=== PATIENT | female | born 1950 ===

== ENCOUNTER → 2024-08-31 | Outpatient (CLI) | payer OTHER | END | disposition home or self-care (01) | LOC: LAB SHORT 16:00 → LAB 16:00 | DX: R30.0 Dysuria (principal) | CPT/HCPCS: 87077; 87086; 87186 ==

== ENCOUNTER 2025-05-24 11:07 | Inpatient (IN) | payer MEDICARE ==
[~2025-05-24] VITALS: Ht 167.6 cm; Wt 64.4 kg
[2025-05-24] MEDS ORDERED: NS 1,000 ML IV SCH ×2 (11:35)
[2025-05-24 12:17] LABS: BASOPHILS ABSOLUTE AUTO 0.08 K/mm3 (0.00-0.23); BASOPHILS PERCENT AUTO 0 % (0-2); EOSINOPHILS ABSOLUTE AUTO 0.06 K/mm3 (0.00-0.68); EOSINOPHILS PERCENT AUTO 0 % (0-6); Hematocrit 38.5 % (33.0-51.0); Hemoglobin 13.1 g/dL (11.5-16.0); IMMATURE GRAN ABSOLUTE AUTO 0.22 K/mm3 (0.00-0.10); IMMATURE GRAN PERCENT AUTO 1 % (0-1); LYMPHOCYTES ABSOLUTE AUTO 0.68 K/mm3 (0.84-5.20); LYMPHOCYTES PERCENT AUTO 3 % (21-46); MONOCYTES ABSOLUTE AUTO 0.78 K/mm3 (0.16-1.47); MONOCYTES PERCENT AUTO 4 % (4-13); Mean Corpuscular HGB Conc 34.0 g/dL (31.5-36.5); Mean Corpuscular Volume 79 fL (80-100); NEUTROPHILS ABSOLUTE AUTO 18.53 K/mm3 (1.96-9.15); NEUTROPHILS PERCENT AUTO 91 % (41-73); NRBC ABSOLUTE 0.00 K/mm3 (0.00-0.02); NRBC Auto 0.0 /100 WBC (0.0-0.2); Platelet Count 418 K/mm3 (150-400); RDW Coefficient Variation 13.1 % (11.7-14.2); RDW Standard Deviation 37.4 fL (35.1-46.3)
[2025-05-24 13:30] LABS: Alanine Aminotransfer (ALT/SGP 67.0 U/L (12-78); Albumin, Blood 1.8 g/dL (3.4-5.0); Albumin/Globulin Ratio 0.3 (0.8-1.8); Anion Gap 14.0 mmol/L (3-11); Aspartate Aminotrans (AST/SGOT 81.0 U/L (12-37); Bilirubin, Total 0.6 mg/dL (0.1-1.0); Blood Urea Nitrogen 70.0 mg/dL (8-24); CO2, Blood 21.0 mmol/L (21-32); Calcium, Blood 8.9 mg/dL (8.5-10.1); Chloride, Blood 87.0 mmol/L (98-108); Creatinine, Blood 2.3 mg/dL (0.40-1.00); Globulin, Blood 6.2 g/dL (2.2-4.0); Glucose, Blood 138.0 mg/dL (70-99); Potassium, Blood 5.1 mmol/L (3.5-5.5); Sodium, Blood 117.0 mmol/L (136-145); Total Protein, Blood 8.0 g/dL (6.4-8.2)
[2025-05-24 14:50] LABS: Source, Urine Straight Cath
[2025-05-24 15:01] LABS: Bilirubin, Urine Neg (Neg); Glucose Qualitative, Urine Neg (Neg); Ketones, Urine Neg (Neg); Leukocyte Esterase, Urine 1+ (Neg); Protein, Urine 2+ (Neg); Specific Gravity, Urine 1.030 (1.003-1.022); Urobilinogen, Urine NORM (Normal)
[2025-05-24 15:17] LABS: Color, Urine Yellow (P-Yellow)
[2025-05-24] MEDS ORDERED: CefTRIAXone Sodium 1,000 MG in NS 50 ML IV ONE (16:00)
[2025-05-24] MEDS ORDERED: Ondansetron HCl 2 MG / ML 2ML Vial IV PRN (18:20)
[2025-05-24 20:15] LABS: Source, Urine Foley catheter
[2025-05-24 20:21] LABS: Bilirubin, Urine Neg (Neg); Glucose Qualitative, Urine Neg (Neg); Ketones, Urine Neg (Neg); Leukocyte Esterase, Urine 3+ (Neg); Protein, Urine 2+ (Neg); Specific Gravity, Urine 1.025 (1.003-1.022); Urobilinogen, Urine NORM (Normal)
[2025-05-24 20:23] LABS: Color, Urine Yellow (P-Yellow)
[2025-05-24 20:30] LABS: Red Blood Cells, Urine TNTC /hpf (0-2); White Blood Cells, Urine TNTC /hpf (0-5)
[2025-05-24] MEDS ORDERED: Lactobacil 2-S.Thermo-Bifido 1 1 Cap PO SCH (21:00)
[2025-05-24] MEDS ORDERED: Heparin Sodium,Porcine 5,000 UNIT/0.5 ML SDV SC SCH (21:00)
[2025-05-24] MEDS ORDERED: Morphine Sulfate 4 MG/1 ML Injection IV PRN ×2 (21:10→22:20)
[2025-05-24 21:43] LABS: Magnesium, Blood 1.9 mg/dL (1.6-2.4)
[2025-05-24 21:44] LABS: Alanine Aminotransfer (ALT/SGP 66.0 U/L (12-78); Albumin, Blood 1.5 g/dL (3.4-5.0); Albumin/Globulin Ratio 0.3 (0.8-1.8); Anion Gap 14.0 mmol/L (3-11); Aspartate Aminotrans (AST/SGOT 89.0 U/L (12-37); Bilirubin, Total 0.4 mg/dL (0.1-1.0); Blood Urea Nitrogen 66.0 mg/dL (8-24); CO2, Blood 19.0 mmol/L (21-32); Calcium, Blood 8.0 mg/dL (8.5-10.1); Chloride, Blood 98.0 mmol/L (98-108); Creatinine, Blood 1.57 mg/dL (0.40-1.00); Globulin, Blood 5.3 g/dL (2.2-4.0); Glucose, Blood 89.0 mg/dL (70-99); Potassium, Blood 4.3 mmol/L (3.5-5.5); Sodium, Blood 127.0 mmol/L (136-145); Total Protein, Blood 6.8 g/dL (6.4-8.2)
[2025-05-24] MEDS ORDERED: D5W-1/2NS 1,000 ML IV SCH ×2 (22:15→22:55)
[2025-05-24 22:57] LABS: Campylobacter Sp Not Detected (NOT DETECT); E. Coli O157 Not Detected (NOT DETECT); Enteroaggregative E. coli-EAEC Not Detected (NOT DETECT); Enteropathogenic E. coli-EPEC Not Detected (NOT DETECT); Enterotoxigenic E. coli-ETEC Not Detected (NOT DETECT); Salmonella Sp Not Detected (NOT DETECT); Shiga Toxin-prod E. coli-STEC Not Detected (NOT DETECT); Shigella/Enteroin E. coli-EIEC Not Detected (NOT DETECT); Vibrio Sp Not Detected (NOT DETECT)
[2025-05-24] MEDS ORDERED: Piperacillin/Tazobactam Sod 4.5 GM in NS 100 ML IV SCH (23:30)
[2025-05-25] VITALS (67 sets, daily range): BP systolic 73–114; BP diastolic 43–67
[2025-05-25] MEDS ORDERED: Insulin Human Lispro 100 Units/ML 3ML Syringe SC SCH
[2025-05-25 01:33] LABS: Anion Gap 13.0 mmol/L (3-11); Blood Urea Nitrogen 60.0 mg/dL (8-24); CO2, Blood 20.0 mmol/L (21-32); Calcium, Blood 8.0 mg/dL (8.5-10.1); Chloride, Blood 99.0 mmol/L (98-108); Creatinine, Blood 1.29 mg/dL (0.40-1.00); Glucose, Blood 140.0 mg/dL (70-99); Potassium, Blood 4.0 mmol/L (3.5-5.5); Sodium, Blood 128.0 mmol/L (136-145)
[2025-05-25 05:27] LABS: BASOPHILS ABSOLUTE AUTO 0.06 K/mm3 (0.00-0.23); BASOPHILS PERCENT AUTO 0 % (0-2); EOSINOPHILS ABSOLUTE AUTO 0.06 K/mm3 (0.00-0.68); EOSINOPHILS PERCENT AUTO 0 % (0-6); Hematocrit 36.3 % (33.0-51.0); Hemoglobin 11.7 g/dL (11.5-16.0); IMMATURE GRAN ABSOLUTE AUTO 0.18 K/mm3 (0.00-0.10); IMMATURE GRAN PERCENT AUTO 1 % (0-1); LYMPHOCYTES ABSOLUTE AUTO 0.66 K/mm3 (0.84-5.20); LYMPHOCYTES PERCENT AUTO 4 % (21-46); MONOCYTES ABSOLUTE AUTO 0.98 K/mm3 (0.16-1.47); MONOCYTES PERCENT AUTO 5 % (4-13); Mean Corpuscular HGB Conc 32.2 g/dL (31.5-36.5); Mean Corpuscular Volume 83 fL (80-100); NEUTROPHILS ABSOLUTE AUTO 16.99 K/mm3 (1.96-9.15); NEUTROPHILS PERCENT AUTO 90 % (41-73); NRBC ABSOLUTE 0.00 K/mm3 (0.00-0.02); NRBC Auto 0.0 /100 WBC (0.0-0.2); Platelet Count 343 K/mm3 (150-400); RDW Coefficient Variation 13.2 % (11.7-14.2); RDW Standard Deviation 40.2 fL (35.1-46.3)
[2025-05-25 05:54] LABS: Alanine Aminotransfer (ALT/SGP 69.0 U/L (12-78); Albumin, Blood 1.5 g/dL (3.4-5.0); Albumin/Globulin Ratio 0.3 (0.8-1.8); Anion Gap 12.0 mmol/L (3-11); Aspartate Aminotrans (AST/SGOT 94.0 U/L (12-37); Bilirubin, Total 0.4 mg/dL (0.1-1.0); Blood Urea Nitrogen 57.0 mg/dL (8-24); CO2, Blood 22.0 mmol/L (21-32); Calcium, Blood 8.0 mg/dL (8.5-10.1); Chloride, Blood 97.0 mmol/L (98-108); Creatinine, Blood 1.25 mg/dL (0.40-1.00); Globulin, Blood 4.8 g/dL (2.2-4.0); Glucose, Blood 183.0 mg/dL (70-99); Magnesium, Blood 2.0 mg/dL (1.6-2.4); Potassium, Blood 4.0 mmol/L (3.5-5.5); Sodium, Blood 127.0 mmol/L (136-145); Total Protein, Blood 6.3 g/dL (6.4-8.2)
[2025-05-25] MEDS ORDERED: D5W-1/2NS 1,000 ML IV SCH (08:00)
[2025-05-25] MEDS ORDERED: Enoxaparin 40 MG/0.4 ML SYR SC SCH (09:00)
[2025-05-25] MEDS ORDERED: Polyethylene Glycol 3350 17 gm PO SCH (09:00)
[2025-05-25 10:46] LABS: Anion Gap 10.0 mmol/L (3-11); Blood Urea Nitrogen 43.0 mg/dL (8-24); CO2, Blood 23.0 mmol/L (21-32); Calcium, Blood 7.8 mg/dL (8.5-10.1); Chloride, Blood 97.0 mmol/L (98-108); Creatinine, Blood 1.15 mg/dL (0.40-1.00); Glucose, Blood 236.0 mg/dL (70-99); Potassium, Blood 3.8 mmol/L (3.5-5.5); Sodium, Blood 126.0 mmol/L (136-145); Thyroid Stimulating Hormone 0.467 uIU/mL (0.360-4.800); Uric Acid, Blood 6.6 mg/dL (2.6-6.0)
[2025-05-25] MEDS ORDERED: LISI10 PO (13:15)
[2025-05-25] MEDS ORDERED: GLUCOPHAGE1000 M1 (13:16)
[2025-05-25] MEDS ORDERED: Prozac40 MG PO (13:16)
[2025-05-25] MEDS ORDERED: [UNRECOGNIZED DRUG - OTHER] PO (13:17)
[2025-05-25] MEDS ORDERED: JARDIANCE25 MG PO (13:18)
[2025-05-25] MEDS ORDERED: CefTRIAXone Sodium 1,000 MG in NS 100 ML IV SCH (18:00)
--- NOTE | 2025-05-25 18:15 | NUR ---
SHIFT SUMMARY NEURO: ALERT AND ORIENTED X 3-4. DID NOT UTILIZE CALL LIGHT TODAY. FOLLOW COMMANDS. DROWSY BUT AROUSABLE. CARDIAC: SINUS TACHYCARDIA HR 110S. HYPOTENSIVE THIS AM. DR REED NOTIFIED. NEW ORDERS RECIEVED FOR MIDODRINE. INSTUCTED MAP >60 OK UNTIL MIDODRINE IN EFFECT. SBP CURRENTLY 110S, DBP 50S. PULM: LUNGS CLEAR AND DIM IN BILATERAL POSTERIOR BASES. +SNORING WHILE SLEEPING BUT NO NOTED APNEA OR DESATS. SPO2 >92% ON RA. DENIES ANY COUGH. GI: HYPERTONIC BOWEL TONES, TENDER ABDOMEN TO PALPATION. DENIES ANY NAUSEA BUT STATES THAT HER STOMACH DOESNT FEEL RIGHT. +CONSTIPATION, BOWEL REGIMEN STARTED THIS AM WITH PO MEDS. : URINARY RETENTION, SANCHEZ IN PLACE. IRRIGATED Q 2-4HR TODAY. URINE IS CREAMY WHITE COLOR AND THICK CAUSING TUBE TO BECOME OBSTRUCTED. DRAINING APPROPRIATELY AFTER FLUSHED. BLADDER SCAN DONE AT 1200 840ML. IRRIGATED CATHETHER - 800ML OUT. CALLED TO NOTIFY DR REED. SKIN: J[place]-AREA, LABIA, GROIN FOLDS AND GLUTEAL CLEFT AREAS APPEAR DENUDED AND BRIGHT RED. CURRENLTY APPLYING BARRIER CREAM, AREAS ARE BLANCHABLE. CALLED TO DISCUSS TX WITH DR REED. PT NICARDIPINE STOPPED FOR APPROX 45MIN TODAY PT RESTARTED AT 2.5MG/HR. SBP 150-160S. DENIES ANY CHEST PAIN, NAUSEA OR DIZZINESS TODAY. PT IN CONTACT WITH DAUGHTERS AND THROUGH OUT THE DAY. SHE IS THE SOLE CAREGIVER TO HER , FAMILY IS AT THEIR HOME ASSISTING WITH HIS CARE.
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
[2025-05-25] MEDS ORDERED: Arginine/Glutamine/Calcium Hmb 1 Packet PO SCH (21:00)
[2025-05-26] VITALS (52 sets, daily range): BP systolic 75–111; BP diastolic 46–85
[2025-05-26 03:56] LABS: BASOPHILS ABSOLUTE AUTO 0.02 K/mm3 (0.00-0.23); BASOPHILS PERCENT AUTO 0 % (0-2); EOSINOPHILS ABSOLUTE AUTO 0.03 K/mm3 (0.00-0.68); EOSINOPHILS PERCENT AUTO 0 % (0-6); Hematocrit 32.1 % (33.0-51.0); Hemoglobin 10.8 g/dL (11.5-16.0); IMMATURE GRAN ABSOLUTE AUTO 0.11 K/mm3 (0.00-0.10); IMMATURE GRAN PERCENT AUTO 1 % (0-1); LYMPHOCYTES ABSOLUTE AUTO 0.79 K/mm3 (0.84-5.20); LYMPHOCYTES PERCENT AUTO 5 % (21-46); MONOCYTES ABSOLUTE AUTO 0.61 K/mm3 (0.16-1.47); MONOCYTES PERCENT AUTO 4 % (4-13); Mean Corpuscular HGB Conc 33.6 g/dL (31.5-36.5); Mean Corpuscular Volume 81 fL (80-100); NEUTROPHILS ABSOLUTE AUTO 13.18 K/mm3 (1.96-9.15); NEUTROPHILS PERCENT AUTO 90 % (41-73); NRBC ABSOLUTE 0.00 K/mm3 (0.00-0.02); NRBC Auto 0.0 /100 WBC (0.0-0.2); Platelet Count 364 K/mm3 (150-400); RDW Coefficient Variation 13.2 % (11.7-14.2); RDW Standard Deviation 38.5 fL (35.1-46.3)
[2025-05-26 04:15] LABS: Alanine Aminotransfer (ALT/SGP 114.0 U/L (12-78); Albumin, Blood 1.3 g/dL (3.4-5.0); Albumin/Globulin Ratio 0.3 (0.8-1.8); Anion Gap 7.0 mmol/L (3-11); Aspartate Aminotrans (AST/SGOT 171.0 U/L (12-37); Bilirubin, Total 0.5 mg/dL (0.1-1.0); Blood Urea Nitrogen 32.0 mg/dL (8-24); CO2, Blood 26.0 mmol/L (21-32); Calcium, Blood 7.7 mg/dL (8.5-10.1); Chloride, Blood 99.0 mmol/L (98-108); Creatinine, Blood 0.92 mg/dL (0.40-1.00); Globulin, Blood 4.5 g/dL (2.2-4.0); Glucose, Blood 115.0 mg/dL (70-99); Potassium, Blood 3.8 mmol/L (3.5-5.5); Sodium, Blood 128.0 mmol/L (136-145); Total Protein, Blood 5.8 g/dL (6.4-8.2)
--- NOTE | 2025-05-26 06:38 | NUR ---
END OF SHIFT SUMMARY No signficant events over night. Patient vocalize no compliants at this time. Hsu catheter flushed q2hr to maintain urine flow , Pt tolerated PO medications , no BM overnight . Pressure soft , but stable . Systolic >90 MAP > 60
--- NOTE | 2025-05-26 10:51 | NUR ---
Spiritual Care Visit. Pt. is resting in her bed. Daughter is at bedside and welcomes my visit. Pt. is swedish speaking, and daughter is bilingual. Daughter verbalizes that the Pt. is a very faithful practicing episcopalian, but welcomes spiritual care. Pt. becomes responsive to my presence and welcomed prayer. Prayed for the Pt. Pt. smiled, and daughter verbalized gratitude for the spiritual care visit. Will remain available to the Pt. and family.
--- NOTE | 2025-05-26 19:35 | NUR ---
SHIFT SUMMARY: NEURO: PATIENT REPORTED FEELING MUCH BETTER TODAY. PATIENT ALERT AND ORIENTED X4. MOVEMENT IN ALL 4 EXTREMITIES. PATIENT IS WEAKER ON THE LEFT SIDE COMPARED TO THE RIGHT. NO FACIAL DROOP OR SLURRING OF WORDS. PATIENT ABLE TO EAT INDEPENDENTLY. PATIENT MEDICATED TWICE FOR LEG PAIN. PATIENT UP TO THE CHAIR THIS EVENING. PATIENT'S DAUGHTER REPORTS THAT THE REDNESS IN THE J[place]SEY-AREA WAS PRESENT UPON ADMISSION TO THE ER. ORDER OBTAINED FOR NYSTATIN CREAM. CREAM WAS STARTED THIS AFTERNOON. CARDIAC: TO MAINTAIN MAPS >65, PATIENT STARTED ON LEVOPHED. BY THE END OF THE SHIFT, PATIENT AT 4 MCG/MIN. PATIENT STARTED THE SHIFT WITH HR IN THE 100S. IN THE AFTERNOON, THE HEART RATE CAME DOWN AND STAYED IN THE 70S-80S. RESPIRATORY: PATIENT REMAINED STABLE ON ROOM AIR. PATIENT DENIED SHORTNESS OF BREATH OR DIFFICULTY BREATHING. SPO2 >94%. GI/: SANCHEZ IN PLACE AND DRAINING WITH SEDIMENT AT TIMES. SANCHEZ DID REQUIRE SMALL AMOUNTS OF IRRIGATION TWICE TODAY. URINE IMPROVED IN COLOR AND WAS A LIGHT YELLOW BY THE AFTERNOON. NO BOWEL MOVEMENT TODAY. PATIENT REPORTS THE FOOD DOES NOT TASTE GOOD AND SHE IS EATING MUCH SHE CAN ANYWAY. BROUGHT IN CHICKEN BROTH PER REQUEST. DAUGHTER REPORTS SHE WILL BRING IN MORE ITEMS TOMORROW. PSYCHSOCIAL: PATIENT CALM AND COOPERATIVE. FINANCIAL SERVICES PROFESSIONAL SERVICES UTILIZED NEEDED. PATIENT'S DAUGHTER AT BEDSIDE MULTIPLE TIMES TODAY. SHE IS CALM AND SUPPORTIVE OF THE PATIENT.
[2025-05-27] VITALS (72 sets, daily range): BP systolic 77–117; BP diastolic 46–85
[2025-05-27 03:31] LABS: BASOPHILS ABSOLUTE AUTO 0.04 K/mm3 (0.00-0.23); BASOPHILS PERCENT AUTO 0 % (0-2); EOSINOPHILS ABSOLUTE AUTO 0.05 K/mm3 (0.00-0.68); EOSINOPHILS PERCENT AUTO 0 % (0-6); Hematocrit 38.8 % (33.0-51.0); Hemoglobin 12.8 g/dL (11.5-16.0); IMMATURE GRAN ABSOLUTE AUTO 0.11 K/mm3 (0.00-0.10); IMMATURE GRAN PERCENT AUTO 1 % (0-1); LYMPHOCYTES ABSOLUTE AUTO 1.03 K/mm3 (0.84-5.20); LYMPHOCYTES PERCENT AUTO 7 % (21-46); MONOCYTES ABSOLUTE AUTO 0.54 K/mm3 (0.16-1.47); MONOCYTES PERCENT AUTO 4 % (4-13); Mean Corpuscular HGB Conc 33.0 g/dL (31.5-36.5); Mean Corpuscular Volume 82 fL (80-100); NEUTROPHILS ABSOLUTE AUTO 13.42 K/mm3 (1.96-9.15); NEUTROPHILS PERCENT AUTO 88 % (41-73); NRBC ABSOLUTE 0.00 K/mm3 (0.00-0.02); NRBC Auto 0.0 /100 WBC (0.0-0.2); Platelet Count 360 K/mm3 (150-400); RDW Coefficient Variation 13.5 % (11.7-14.2); RDW Standard Deviation 40.0 fL (35.1-46.3)
[2025-05-27 03:55] LABS: Alanine Aminotransfer (ALT/SGP 82.0 U/L (12-78); Albumin, Blood 1.3 g/dL (3.4-5.0); Albumin/Globulin Ratio 0.3 (0.8-1.8); Anion Gap 8.0 mmol/L (3-11); Aspartate Aminotrans (AST/SGOT 71.0 U/L (12-37); Bilirubin, Total 0.6 mg/dL (0.1-1.0); Blood Urea Nitrogen 30.0 mg/dL (8-24); CO2, Blood 26.0 mmol/L (21-32); Calcium, Blood 7.9 mg/dL (8.5-10.1); Chloride, Blood 103.0 mmol/L (98-108); Creatinine, Blood 0.79 mg/dL (0.40-1.00); Globulin, Blood 5.1 g/dL (2.2-4.0); Glucose, Blood 122.0 mg/dL (70-99); Potassium, Blood 3.4 mmol/L (3.5-5.5); Sodium, Blood 134.0 mmol/L (136-145); Total Protein, Blood 6.4 g/dL (6.4-8.2)
--- NOTE | 2025-05-27 06:27 | NUR ---
END OF SHIFT SUMMARY No signficant event over night. Pt has a small BM , continues on 4 mcg / min of levophed and required 1 unit of insulin overnight. No compliants of pain , zabala flush twice overnight with improved urine flow noted afterwards. Resting at this time VSS.
[2025-05-27] MEDS ORDERED: NS 500 ML IV SCH (08:00)
[2025-05-27] MEDS ORDERED: Albumin (Human) 25gm/100ml 100 ML IV SCH (10:00)
[2025-05-27] MEDS ORDERED: NS 1,000 ML BAG IR ONE (16:50)
[2025-05-28] VITALS (43 sets, daily range): BP systolic 89–133; BP diastolic 42–78
[2025-05-28 03:58] LABS: BASOPHILS ABSOLUTE AUTO 0.02 K/mm3 (0.00-0.23); BASOPHILS PERCENT AUTO 0 % (0-2); EOSINOPHILS ABSOLUTE AUTO 0.05 K/mm3 (0.00-0.68); EOSINOPHILS PERCENT AUTO 0 % (0-6); Hematocrit 28.2 % (33.0-51.0); Hemoglobin 9.2 g/dL (11.5-16.0); IMMATURE GRAN ABSOLUTE AUTO 0.11 K/mm3 (0.00-0.10); IMMATURE GRAN PERCENT AUTO 1 % (0-1); LYMPHOCYTES ABSOLUTE AUTO 0.86 K/mm3 (0.84-5.20); LYMPHOCYTES PERCENT AUTO 7 % (21-46); MONOCYTES ABSOLUTE AUTO 0.48 K/mm3 (0.16-1.47); MONOCYTES PERCENT AUTO 4 % (4-13); Mean Corpuscular HGB Conc 32.6 g/dL (31.5-36.5); Mean Corpuscular Volume 81 fL (80-100); NEUTROPHILS ABSOLUTE AUTO 11.02 K/mm3 (1.96-9.15); NEUTROPHILS PERCENT AUTO 88 % (41-73); NRBC ABSOLUTE 0.00 K/mm3 (0.00-0.02); NRBC Auto 0.0 /100 WBC (0.0-0.2); Platelet Count 326 K/mm3 (150-400); RDW Coefficient Variation 13.7 % (11.7-14.2); RDW Standard Deviation 40.5 fL (35.1-46.3)
[2025-05-28 04:27] LABS: Alanine Aminotransfer (ALT/SGP 36.0 U/L (12-78); Albumin, Blood 1.4 g/dL (3.4-5.0); Albumin/Globulin Ratio 0.4 (0.8-1.8); Anion Gap 7.0 mmol/L (3-11); Aspartate Aminotrans (AST/SGOT 19.0 U/L (12-37); Bilirubin, Total 0.6 mg/dL (0.1-1.0); Blood Urea Nitrogen 21.0 mg/dL (8-24); CO2, Blood 27.0 mmol/L (21-32); Calcium, Blood 7.6 mg/dL (8.5-10.1); Chloride, Blood 107.0 mmol/L (98-108); Creatinine, Blood 0.75 mg/dL (0.40-1.00); Globulin, Blood 3.7 g/dL (2.2-4.0); Glucose, Blood 107.0 mg/dL (70-99); Potassium, Blood 3.9 mmol/L (3.5-5.5); Sodium, Blood 137.0 mmol/L (136-145); Total Protein, Blood 5.1 g/dL (6.4-8.2)
--- NOTE | 2025-05-28 06:17 | NUR ---
END OF SHIFT SUMMARY Levophed stopped at 194 and restarted at 1 mcg/ min at 0330 . BP 106/53 (69) . Two medium sized green/black bowel movement of hard texture passed. Hsu required two episodes of flushing to clear sediment . Pt denies distress at this time. Otherwise, uneventful night .
--- NOTE | 2025-05-28 18:45 | NUR ---
EOSS PATIENT STILL REQUIRING SOME INT LEVOPHED. FC IRRIGATED 3X THIS SHIFT AND STILL HAVING WHITE DISCHARGE. PATIENT OOB FOR BREAKFAST AND LUNCH TODAY VIA LIFT (TOTAL 4 HOURS). AFEBRILE, AAO, RA.
--- NOTE | 2025-05-28 22:43 | NUR ---
ASSUMED CARE OF PT AT 1900 PT RESTING ON BED, VISITING W/ HER DAUGHTER AT BEDSIDE. PT ALERT AND ORIENTED, COOPERATIVE W/ CARE. PT IS KHMER SPEAKING, BUT CAN COMPREHEND BASIC UZBEK PHRASES. PROCUREMENT PROFESSIONAL LOGISTICS PHONE AT BEDSIDE. PT ON ROOM AIR, SATS >95%. NSR VIA CONTINUOUS MARKET RESEARCH MANAGER. RATE OF 80-90S. BP STABLE W/ MAP>65. PT AFEBRILE. PT HAS SANCHEZ CATH, DRAINING PURULENT URINE W/ SEDIMENT. CATHETER IRRIGATED TO MAINTAIN PATENCY. PT HAD MEDIUM DARK, BROWN BM. PT VULVA SEVERELY SWOLLEN, RED, AND PAINFUL TO TOUCH AND W/ MOVEMENT. HOSPITALIST JARED UPDATED- NO ORDERS AT THIS TIME. PT SACRUM AND JERSE[place]-AREA REDDENED W/ SOME EXORIATION. BARRIER AND NYSTATIN CREAM APPLIED. CALL LIGHT W/IN REACH. PLAN OF CARE ONGOING.
[2025-05-29] VITALS (33 sets, daily range): BP systolic 93–138; BP diastolic 42–84
--- NOTE | 2025-05-29 06:59 | NUR ---
NOC SHIFT SUMMARY NO ACUTE EVENTS. PT ALERT AND COOPERATIVE W/ CARE. PT USING CALL LIGHT APPROPRIATELY. TURNED Q2 HRS. PT AFEBRILE. SANCHEZ CATH IRRIGATED MULTIPLE TIMES DURING SHIFT- URINE REMAINS PURULENT AND W/ PROFOUND SEDIMENT. 2 BMS DURING SHIFT. BARRIER CREAM AND NYSTATIN APPLIED. PLAN OF CARE ONGOING
[2025-05-29 08:31] LABS: BASOPHILS ABSOLUTE AUTO 0.02 K/mm3 (0.00-0.23); BASOPHILS PERCENT AUTO 0 % (0-2); EOSINOPHILS ABSOLUTE AUTO 0.05 K/mm3 (0.00-0.68); EOSINOPHILS PERCENT AUTO 1 % (0-6); Hematocrit 28.9 % (33.0-51.0); Hemoglobin 9.2 g/dL (11.5-16.0); IMMATURE GRAN ABSOLUTE AUTO 0.08 K/mm3 (0.00-0.10); IMMATURE GRAN PERCENT AUTO 1 % (0-1); LYMPHOCYTES ABSOLUTE AUTO 0.92 K/mm3 (0.84-5.20); LYMPHOCYTES PERCENT AUTO 9 % (21-46); MONOCYTES ABSOLUTE AUTO 0.36 K/mm3 (0.16-1.47); MONOCYTES PERCENT AUTO 3 % (4-13); Mean Corpuscular HGB Conc 31.8 g/dL (31.5-36.5); Mean Corpuscular Volume 83 fL (80-100); NEUTROPHILS ABSOLUTE AUTO 9.41 K/mm3 (1.96-9.15); NEUTROPHILS PERCENT AUTO 87 % (41-73); NRBC ABSOLUTE 0.00 K/mm3 (0.00-0.02); NRBC Auto 0.0 /100 WBC (0.0-0.2); Platelet Count 307 K/mm3 (150-400); RDW Coefficient Variation 13.8 % (11.7-14.2); RDW Standard Deviation 41.8 fL (35.1-46.3)
[2025-05-29 08:51] LABS: Alanine Aminotransfer (ALT/SGP 23.0 U/L (12-78); Albumin, Blood 1.9 g/dL (3.4-5.0); Albumin/Globulin Ratio 0.5 (0.8-1.8); Anion Gap 5.0 mmol/L (3-11); Aspartate Aminotrans (AST/SGOT 14.0 U/L (12-37); Bilirubin, Total 0.8 mg/dL (0.1-1.0); Blood Urea Nitrogen 16.0 mg/dL (8-24); CO2, Blood 28.0 mmol/L (21-32); Calcium, Blood 7.7 mg/dL (8.5-10.1); Chloride, Blood 106.0 mmol/L (98-108); Creatinine, Blood 0.7 mg/dL (0.40-1.00); Globulin, Blood 3.5 g/dL (2.2-4.0); Glucose, Blood 99.0 mg/dL (70-99); Potassium, Blood 3.3 mmol/L (3.5-5.5); Sodium, Blood 136.0 mmol/L (136-145); Total Protein, Blood 5.4 g/dL (6.4-8.2)
[2025-05-29] MEDS ORDERED: CefTRIAXone Sodium 2,000 MG in NS 100 ML IV SCH (09:00)
[2025-05-29 09:35] LABS: Source, Urine Foley catheter
[2025-05-29 10:12] LABS: Bilirubin, Urine Neg (Neg); Color, Urine Yellow (P-Yellow); Glucose Qualitative, Urine 2+ (Neg); Ketones, Urine Neg (Neg); Leukocyte Esterase, Urine 3+ (Neg); Protein, Urine 2+ (Neg); Specific Gravity, Urine 1.010 (1.003-1.022); Urobilinogen, Urine NORM (Normal)
[2025-05-29 10:20] LABS: White Blood Cells, Urine 50-100 /hpf (0-5); Yeast/Fungi Urine Many /hpf
[2025-05-29] MEDS ORDERED: Albumin (Human) 25gm/100ml 100 ML IV SCH ×2 (10:33→17:00)
[2025-05-29] MEDS ORDERED: Lactulose 200 GM/300 ML Enema 300ML BTL PR ONE (11:00)
[2025-05-29] MEDS ORDERED: Polyethylene Glycol 3350 17 gm PO SCH ×2 (11:25→11:30)
[2025-05-29] MEDS ORDERED: Calcium Chloride 10% 1,000 MG in NS 50 ML IV ONE (15:50)
[2025-05-29] MEDS ORDERED: Furosemide 10 MG / ML 2ML Vial IV SCH (18:00)
--- NOTE | 2025-05-29 22:39 | NUR ---
UPDATE PATIENT HAD XXL BOWEL MOVEMENT FORMED BROWN WITH LARGE AMOUNT OF LIQUID BROWN STOOL TO FOLLOW @ 1920. LIQUID STOOL CONSTANTLY LEAKING OUT. PLACED A RECTAL TUBE @2200 DUE TO THE LARGE AMOUNT OF LIQUID STOOL STILL FLOWING OUT OF PATIENT.
[2025-05-30] VITALS (26 sets, daily range): BP systolic 105–139; BP diastolic 49–93
[2025-05-30 03:20] LABS: BASOPHILS ABSOLUTE AUTO 0.01 K/mm3 (0.00-0.23); BASOPHILS PERCENT AUTO 0 % (0-2); EOSINOPHILS ABSOLUTE AUTO 0.04 K/mm3 (0.00-0.68); EOSINOPHILS PERCENT AUTO 1 % (0-6); Hematocrit 27.7 % (33.0-51.0); Hemoglobin 9.0 g/dL (11.5-16.0); IMMATURE GRAN ABSOLUTE AUTO 0.05 K/mm3 (0.00-0.10); IMMATURE GRAN PERCENT AUTO 1 % (0-1); LYMPHOCYTES ABSOLUTE AUTO 0.87 K/mm3 (0.84-5.20); LYMPHOCYTES PERCENT AUTO 10 % (21-46); MONOCYTES ABSOLUTE AUTO 0.35 K/mm3 (0.16-1.47); MONOCYTES PERCENT AUTO 4 % (4-13); Mean Corpuscular HGB Conc 32.5 g/dL (31.5-36.5); Mean Corpuscular Volume 82 fL (80-100); NEUTROPHILS ABSOLUTE AUTO 7.02 K/mm3 (1.96-9.15); NEUTROPHILS PERCENT AUTO 84 % (41-73); NRBC ABSOLUTE 0.00 K/mm3 (0.00-0.02); NRBC Auto 0.0 /100 WBC (0.0-0.2); Platelet Count 275 K/mm3 (150-400); RDW Coefficient Variation 13.8 % (11.7-14.2); RDW Standard Deviation 41.1 fL (35.1-46.3)
[2025-05-30 03:43] LABS: Alanine Aminotransfer (ALT/SGP 20 U/L (12-78); Albumin, Blood 2.5 g/dL (3.4-5.0); Albumin/Globulin Ratio 0.8 (0.8-1.8); Anion Gap 6 mmol/L (3-11); Aspartate Aminotrans (AST/SGOT 19 U/L (12-37); Bilirubin, Total 0.6 mg/dL (0.1-1.0); Blood Urea Nitrogen 18 mg/dL (8-24); CHOL/HDL RATIO 3.9; CO2, Blood 30 mmol/L (21-32); Calcium, Blood 7.8 mg/dL (8.5-10.1); Chloride, Blood 107 mmol/L (98-108); Cholesterol 62 mg/dL (50-200); Creatinine, Blood 0.68 mg/dL (0.40-1.00); Globulin, Blood 3.1 g/dL (2.2-4.0); Glucose, Blood 100 mg/dL (70-99); HDL Cholesterol 16 mg/dL (>39); LDL/HDL RATIO 1.5; Low Density Lipoprotein Chol 24 mg/dL (0-110); Potassium, Blood 3.2 mmol/L (3.5-5.5); Sodium, Blood 140 mmol/L (136-145); Total Protein, Blood 5.6 g/dL (6.4-8.2); Triglycerides 110 mg/dL (30-160); Very Low Density Lipoprot Chol 22 mg/dL (6-32)
--- NOTE | 2025-05-30 06:22 | NUR ---
SHIFT SUMMARY PATIENT IN A&O X3, GREENLANDIC SPEAKING BUT DOES UNDERSTAND AND CAN SPEAK A LITTLE PERSIAN. PATIENT HAS LEFT SIDE WEAKNESS AT BASELINE. PATIENT HAD X2 BOUTS OF DIARRHEA, RECTAL TUBE WAS PLACED AND DRAINING TO GRAVITY. PATIENT MOVES LEGS AROUND AND ATTENDS IN PLACE TO HELP WITH LEAKS FROM RECTAL TUBE. 24 HOUR URINE STARTED @1800 05/29/24. HR IN THE 80'S AND SBP 120'S. PATIENT HAS SANCHEZ CLOUDY YELLOW IN COLOR, PER ORDER Q2-4 HOUR FLUSHES WITH STERILE WATER. RIGHT HAND PERIPHERAL IV AND LEFT UPPERARM PERIPHERAL IV. VAGINA AND BUTTOCKS REDDNESS WITH BREAK DOWN PICS IN CHART. BARRIER CREAM APPLIED TO ALL AREAS AND VERY PAINFULL TO PATIENT WHEN CLEANING. PATIENT ABLE TO USE CALL LIGHT AND CALL LIGHT WITHIN REACH.
[2025-05-30] MEDS ORDERED: Polyethylene Glycol 3350 17 gm PO SCH (09:00)
[2025-05-31] VITALS: BP 113/61
--- NOTE | 2025-05-31 00:55 | NUR ---
TRANSFERED CARE TRANSFERED CARE TO MARILYN DUNCAN ON MEDICAL FLOOR.
--- NOTE | 2025-05-31 01:22 | NUR ---
ASSUMPTION OF CARE: ASSUMED CARE OF PT FROM MARILYN HERNANDEZ FROM ICU.
[2025-05-31 04:00] VITALS: BP 124/67
[2025-05-31 07:07] LABS: BASOPHILS ABSOLUTE AUTO 0.00 K/mm3 (0.00-0.23); BASOPHILS PERCENT AUTO 0 % (0-2); EOSINOPHILS ABSOLUTE AUTO 0.04 K/mm3 (0.00-0.68); EOSINOPHILS PERCENT AUTO 1 % (0-6); Hematocrit 29.0 % (33.0-51.0); Hemoglobin 9.3 g/dL (11.5-16.0); IMMATURE GRAN ABSOLUTE AUTO 0.06 K/mm3 (0.00-0.10); IMMATURE GRAN PERCENT AUTO 1 % (0-1); LYMPHOCYTES ABSOLUTE AUTO 0.79 K/mm3 (0.84-5.20); LYMPHOCYTES PERCENT AUTO 9 % (21-46); MONOCYTES ABSOLUTE AUTO 0.25 K/mm3 (0.16-1.47); MONOCYTES PERCENT AUTO 3 % (4-13); Mean Corpuscular HGB Conc 32.1 g/dL (31.5-36.5); Mean Corpuscular Volume 84 fL (80-100); NEUTROPHILS ABSOLUTE AUTO 7.22 K/mm3 (1.96-9.15); NEUTROPHILS PERCENT AUTO 86 % (41-73); NRBC ABSOLUTE 0.00 K/mm3 (0.00-0.02); NRBC Auto 0.0 /100 WBC (0.0-0.2); Platelet Count 290 K/mm3 (150-400); RDW Coefficient Variation 13.7 % (11.7-14.2); RDW Standard Deviation 41.1 fL (35.1-46.3)
[2025-05-31 07:10] VITALS: BP 133/69
[2025-05-31 07:42] LABS: Magnesium, Blood 1.4 mg/dL (1.6-2.4)
[2025-05-31 07:43] LABS: Alanine Aminotransfer (ALT/SGP 19.0 U/L (12-78); Albumin, Blood 2.5 g/dL (3.4-5.0); Albumin/Globulin Ratio 0.7 (0.8-1.8); Anion Gap 7.0 mmol/L (3-11); Aspartate Aminotrans (AST/SGOT 18.0 U/L (12-37); Bilirubin, Total 0.4 mg/dL (0.1-1.0); Blood Urea Nitrogen 22.0 mg/dL (8-24); CO2, Blood 32.0 mmol/L (21-32); Calcium, Blood 8.0 mg/dL (8.5-10.1); Chloride, Blood 105.0 mmol/L (98-108); Creatinine, Blood 0.64 mg/dL (0.40-1.00); Globulin, Blood 3.5 g/dL (2.2-4.0); Glucose, Blood 116.0 mg/dL (70-99); Phosphorus, Blood 2.2 mg/dL (2.5-4.9); Potassium, Blood 3.0 mmol/L (3.5-5.5); Sodium, Blood 141.0 mmol/L (136-145); Total Protein, Blood 6.0 g/dL (6.4-8.2)
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
[2025-05-31] MEDS ORDERED: Potassium Phosphate Dibasic 20 MM in Dextrose 5% 500 ML IV STA (09:31)
[2025-05-31] MEDS ORDERED: NS 250 ML IV PRN (09:55)
[2025-05-31] MEDS ORDERED: Mag Sulfate 1 GM/D5% 100ML 100 ML IV STA (15:07)
[2025-05-31 15:42] VITALS: BP 131/82
--- NOTE | 2025-05-31 18:01 | NUR ---
NOTE PT RESTING QUIETLY. FAMILY HERE EARLIER TO VISIT. 24 HOUR URINE INPROCESS. SANCHEZ BAG IN ICE AND BROWN JUG ON ICE WELL. VSS. DENIED DISCOMFORT. SKIN/[place] CARE DONE. RECTAL TUBE CARE DONE. REPOSITIONED BALLOON PER PROTOCOL. SCANT LEAKING NOTED. [place] SKIN VERY SORE TO GENTLY CLEANSING. WOUND CLEANSER USED. CARE ONGOING.
[2025-05-31 19:59] VITALS: BP 121/80
[2025-05-31 20:59] LABS: Protein, Urine Quantitative 51.9 mg/dL (0.0-11.9)
--- NOTE | 2025-06-01 04:24 | NUR ---
NIGTH SHIFT SUMMARY: NO ACUTE EVENTS T/O SHIFT. DENIES PAIN / DISCOMFORT. SANCHEZ DRAINING YELLOW URINE TO GRAVITY. J[place] CARE / RECTAL TUBE CARE DONE. VSS. TURN SCHEDULE Q2H IN PLACE. PT BED IN LOWEST POSITION. CALL LIGHT IN REACH. CARES ON GOING ORDERED.
[2025-06-01 05:05] VITALS: BP 104/75
[2025-06-01 05:57] LABS: Hematocrit 29.2 % (33.0-51.0); Hemoglobin 9.5 g/dL (11.5-16.0)
[2025-06-01 07:19] VITALS: BP 108/80
[2025-06-01 11:12] LABS: Albumin, Blood 2.3 g/dL (3.4-5.0); Anion Gap 8 mmol/L (3-11); Blood Urea Nitrogen 15 mg/dL (8-24); CO2, Blood 33 mmol/L (21-32); Calcium, Blood 7.6 mg/dL (8.5-10.1); Chloride, Blood 100 mmol/L (98-108); Creatinine, Blood 0.54 mg/dL (0.40-1.00); Glucose, Blood 129 mg/dL (70-99); Magnesium, Blood 1.4 mg/dL (1.6-2.4); Phosphorus, Blood 2.6 mg/dL (2.5-4.9); Potassium, Blood 3.9 mmol/L (3.5-5.5); Sodium, Blood 137 mmol/L (136-145)
[2025-06-01] MEDS ORDERED: Magnesium Sulf 2 GM/Water 50ML 50 ML IV ONE (11:35)
[2025-06-01] MEDS ORDERED: Mag Sulfate 1 GM/D5% 100ML 100 ML IV STA (13:47)
[2025-06-01 15:20] VITALS: BP 101/67
--- NOTE | 2025-06-01 16:23 | NUR ---
RECTAL TUBE SCANT OUT RECTAL TUBE. REMOVED TUBE. SKIN CARE DONE. CARE ONGOING.
--- NOTE | 2025-06-01 17:35 | NUR ---
NOTE PT ALERT AND COOPERATIVE WITH CARE. BED BATH GIVEN. SKIN STILL SLUFFING. VSS. DAUGHTER AND GRANDDAUGHTER CAME BRIEFLY. THEY WERE IN THE ROOM FOR A COUPLE MINUTES. LEFT IN A HURRY AND PT THREW HER PHONE AGAINST THE WALL. WHEN ASKED WHY SHE THREW HEWR PHONE PT PRETENDED TO ONLY SPEAK PRYDEINIG. REPOSTIONED FOR SKIN PROTECTION. [place] AREA VERY RED AND SWOLLEN. RECTAL TUBE REMOVED D/T SCANT OUT PT. PT TOELRATED WELL. LEFT SIDE OG HER BODY IS VERY STIFF. SHE GRIMMICES WHEN SHE TURNES TO THE LEFT BUT REFUSES TO ADMIT SHES UNCOMFORTABLE. SANCHEZ PATENT. IRRIGATED ONCE D/T SEDIMENT. TUNRED AND SUPPORTED WITH PILLOWS TO PROTECT HER SKIN. CARE ONGOING.
[2025-06-01 19:50] VITALS: BP 99/68
[2025-06-02 02:31] VITALS: BP 99/67
--- NOTE | 2025-06-02 05:12 | NUR ---
PATIENT ALERT AND ORIENTED DURING SHIFT. PATIENT ON ROOM AIR. PATIENT HAS SANCHEZ IN PLACE-IRRIGATED ONCE DURING SHIFT FOR SEDIMENT. SANCHEZ CARE COMPLETED. PATIENT TURNED WITH PILLOW SUPPORTS. [place] AREA IS SWOLLWN-CREAM APPLIED. ATTENDS CHANGED. PATIENT ABLE TO MAKE NEEDS KNOWN. BED IN LOCKED AND LOW POSITION WITH WHEELS LOCKED. CALL LIGHT WITHIN REACH.
[2025-06-02 06:37] LABS: Hematocrit 29.7 % (33.0-51.0); Hemoglobin 9.6 g/dL (11.5-16.0)
[2025-06-02 07:19] LABS: Albumin, Blood 2.1 g/dL (3.4-5.0); Anion Gap 6 mmol/L (3-11); Blood Urea Nitrogen 19 mg/dL (8-24); CO2, Blood 32 mmol/L (21-32); Calcium, Blood 7.5 mg/dL (8.5-10.1); Chloride, Blood 100 mmol/L (98-108); Creatinine, Blood 0.59 mg/dL (0.40-1.00); Glucose, Blood 185 mg/dL (70-99); Magnesium, Blood 2.1 mg/dL (1.6-2.4); Phosphorus, Blood 2.4 mg/dL (2.5-4.9); Potassium, Blood 3.7 mmol/L (3.5-5.5); Sodium, Blood 134 mmol/L (136-145); Thyroid Stimulating Hormone 2.300 uIU/mL (0.360-4.800); Uric Acid, Blood 2.5 mg/dL (2.6-6.0)
[2025-06-02 07:29] LABS: Cortisol, AM 20.8 ug/dL (6.7-22.6)
[2025-06-02 07:33] VITALS: BP 98/66
[2025-06-02 07:37] LABS: Parathyroid Hormone, Intact 131.0 pg/mL (12-88)
[2025-06-02] MEDS ORDERED: Sodium Phosphate 20 MM in Dextrose 5% 500 ML IV STA (08:09)
[2025-06-02 12:17] VITALS: BP 91/63
[2025-06-02 15:27] VITALS: BP 91/61
[2025-06-02 19:23] VITALS: BP 101/67
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
[2025-06-03 03:42] VITALS: BP 100/64
--- NOTE | 2025-06-03 04:18 | NUR ---
SHIFT SUMMARY ADMITTED FOR UTI/SEPSIS. FULL CODE. ANTIB RX ARE SCHEDULED. PLAN IS FOR PLACEMENT AT SNF. AWAITING INSURANCE AUTHORIZATION. DR TAVERAS IS RENAL CONSULT. SANCHEZ IN PLACE FOR RETENTION. EXCORIATED/REDENNED [place] AREA IS IMPROVING. ACHS CBG'S - LOW SS. ADA DIET. WE ARE Q2 TURNING HER. ON RA. NO NEW CONCERNS THIS SHIFT.
[2025-06-03 06:06] LABS: Hematocrit 28.1 % (33.0-51.0); Hemoglobin 9.2 g/dL (11.5-16.0)
[2025-06-03 06:22] LABS: Magnesium, Blood 1.9 mg/dL (1.6-2.4)
[2025-06-03 06:23] LABS: Albumin, Blood 2.1 g/dL (3.4-5.0); Anion Gap 8 mmol/L (3-11); Blood Urea Nitrogen 18 mg/dL (8-24); CO2, Blood 30 mmol/L (21-32); Calcium, Blood 7.9 mg/dL (8.5-10.1); Chloride, Blood 102 mmol/L (98-108); Creatinine, Blood 0.62 mg/dL (0.40-1.00); Glucose, Blood 148 mg/dL (70-99); Phosphorus, Blood 2.6 mg/dL (2.5-4.9); Potassium, Blood 3.8 mmol/L (3.5-5.5); Sodium, Blood 136 mmol/L (136-145)
[2025-06-03] MEDS ORDERED: Insulin Human Lispro 100 Units/ML 3ML Syringe SC SCH (07:30)
[2025-06-03 07:52] VITALS: BP 103/71
[2025-06-03 12:08] VITALS: BP 92/67
--- NOTE | 2025-06-03 14:12 | NUR ---
NOTE PT WORKED WITH PHYSICAL THERAPY THIS AM. PHYSICAL THERAPY REPORTED "INCREASE IN L SIDE WEAKNESS FROM YESTERDAY. UNSURE IF PT HAS HX, PT NOT GIVING CLEAR ANSWER." THIS RN REPORTED TO DR. ROQUE. DR. ROQUE CAME TO ROUND ON PT. DR. ROQUE REPORTED "PT STATES CHRONIC L SIDE WEAKNESS". NO NEW ORDERS AT THIS TIME. JEEPER OPERATOR NOTIFIED.
[2025-06-03 16:07] VITALS: BP 98/67
[2025-06-03 18:20] VITALS: BP 106/70
--- NOTE | 2025-06-03 19:33 | NUR ---
SHIFT SUMMARY PT A&OX4. PT ADMITTED DUE TO HYDRONEPHROSIS. PT HAS PAIN, PT MEDICATED PER EMAR. PT REPOSITIONED Q2. PT ON BEDREST. PT ACHS BLOOD SUGARS, MANAGED PER EMAR AND DIET. PT EATS ADEQUATE. PT HAS SANCHEZ, SANCHEZ DRAINING ADEQUATE WITH NO DEPENDENT LOOPS. SANCHEZ HAS NO SIGNS OF BLOCKAGE. INCENTIVE SPIROMETER AT BEDSIDE. GROIN IS ESCOIATED. ZINC APPLIED. MEPILEX ON COCCYX. PT WORKED WITH PHYSICAL THERAPY TODAY. PT IN BED, BED IN LOWEST POSITION, CALL LIGHT IN REACH.
[2025-06-03 20:49] VITALS: BP 92/61
--- NOTE | 2025-06-04 03:52 | NUR ---
SHIFT SUMMARY ADMITTED FOR UTI/SEPSIS, SUN. FULL CODE. PLAN IS FOR PLACEMENT PENDING INSURANCE AUTHORIZATION. ANTIB RX ARE SCHEDULED. SANCHEZ IN PLACE FOR RETENTION. ADA DIET. ACHS CBG'S - LOW SS. CHRONIC LEFT SIDED WEAKNESS. Q2 TURNS. NITIN IS RENAL CONSULT. EXCORIATIONS IN GROIN AND J[place] AREA ARE IMPROVING. NO NEW CONCERNS THIS SHIFT.
[2025-06-04 04:43] VITALS: BP 105/69
[2025-06-04 05:37] LABS: Hematocrit 28.2 % (33.0-51.0); Hemoglobin 9.1 g/dL (11.5-16.0)
[2025-06-04 06:12] LABS: Albumin, Blood 2.2 g/dL (3.4-5.0); Anion Gap 8 mmol/L (3-11); Blood Urea Nitrogen 21 mg/dL (8-24); CO2, Blood 31 mmol/L (21-32); Calcium, Blood 8.1 mg/dL (8.5-10.1); Chloride, Blood 103 mmol/L (98-108); Creatinine, Blood 0.55 mg/dL (0.40-1.00); Glucose, Blood 141 mg/dL (70-99); Magnesium, Blood 1.7 mg/dL (1.6-2.4); Phosphorus, Blood 1.9 mg/dL (2.5-4.9); Potassium, Blood 3.8 mmol/L (3.5-5.5); Sodium, Blood 138 mmol/L (136-145)
[2025-06-04 07:37] VITALS: BP 102/68
[2025-06-04 12:35] VITALS: BP 104/71
[2025-06-04 16:10] VITALS: BP 103/71
--- NOTE | 2025-06-04 17:22 | NUR ---
SHIFT SUMMARY PT A&OX4. PT ADMITTED DUE TO HYDRONEPHROSIS. PT REPORTS MINIMAL PAIN, PAIN MANAGED PER EMAR. PT WORKED WITH PHYSICAL THERAPY THIS AM. PT WAS UP IN CHAIR FOR A FEW HOURS. PT Q2 TURNED. PT IS A 2 ASSIST TO CHAIR. PT HAS ESCORIATION ON GROIN, ZINC APPLIED. PT HAS CBG ORDERS. CHECKS ARE ACHS. PT EATS ADEQUATE. PT HAS SANCHEZ, SANCHEZ DRAINING ADEQUATE AND HAS NO DEPENDENT LOOPS. NO SETIMENT NOTED. DR. ROQUE REPORTED PT WILL GO TO REHAB WITH SANCHEZ. INCENTIVE SPIROMETER AT BEDSIDE. PT IN BED, BED IN LOWEST POSITION, CALL LIGHT IN REACH. PT MAKES NEEDS KNOWN. VSS. PT GETS MIDODRINE PER PERAMETERS
[2025-06-04 17:48] VITALS: BP 111/79
[2025-06-04 19:38] VITALS: BP 118/81
[2025-06-05 04:29] VITALS: BP 118/77
--- NOTE | 2025-06-05 05:50 | NUR ---
SHIFT SUMMARY PT HERE FOR SEVERE SEPSIS DUE TO UTI. SHE HAS BEEN AOX4, CALM AND COOPERATIVE. SHE HAS BEEN BEDREST, W/ Q2 TURNS. PT HAS BEEN 2P MAX ASSIST. SHE HAS SANCHEZ, PATENT AND DRAINING BY GRAVITY. NO SEDIMENT NOTED. PT HAS HAD PAIN IN PERINEAL AREA/GROIN DUE TO WOUNDS AND REDNESS IN AREA. PAIN RELIEVED W/ REPOSITIONING, REST AND MEDICATIONS (SEE EMAR). PT HAS HAD NO OTHER COMPLAINTS. NO ACUTE EVENTS OVERNIGHT.
[2025-06-05 07:11] VITALS: BP 96/63
[2025-06-05] MEDS ORDERED: Sodium Phosphate Mono/Dibasic 250 MG Tab PO SCH (08:00)
[2025-06-05 09:35] LABS: MYELOPEROXIDASE (MPO) AB,IGG 0 AU/mL (0-19); SERINE PROTEINASE 3 PR3 AB,IGG 1 AU/mL (0-19)
[2025-06-05 15:57] VITALS: BP 106/68
[2025-06-05 18:10] VITALS: BP 108/65
--- NOTE | 2025-06-05 19:18 | NUR ---
SHIFT SUMMARY CLIENT IS AOX4. MEDICATION COMPLIANT. HAD FAMILY IN ROOM VISITING TODAY. NO C/O PAIN. LEFT SIDED WEAKNESS PERSISTS, WITH LEFT LEG BEING WEAKER. BED IS LOW POSITION AND CALL LIGHT IS WITHIN REACH
--- NOTE | 2025-06-05 19:21 | NUR ---
ASSUMPTION OF CARE ADMITTED CLIENT FROM ED FOR ACUTE KIDNEY INJURY. CLIENT HAS IV IN LEFT WRIST/LOWER FOREARM RUNNING NS @ 125ML/HR.PT EVAL ORDERED AND PENDING. CLIENT IS ON ROOM AIR. CLIENTS' PULSE PERIODICALLY DROPPING INTO THE MID/UPPER 30'S. CONTACTED PRIVIDER. RECIEVED ORDERS TO D/C TOPROL AND DIGOXIN.NPROVIDER WILL RE-EVAL IN THE MORNING. CLIENT HAS SLEPT SOUNDLY FOR THE REMAINDER OF THE SHIFT. BED IS IN LOW POSITION AND CALL LIGHT IS WITHIN REACH
[2025-06-05 19:26] VITALS: BP 105/65
[2025-06-06 04:51] VITALS: BP 113/67
[2025-06-06 06:09] LABS: Albumin, Blood 2.4 g/dL (3.4-5.0); Anion Gap 4 mmol/L (3-11); Blood Urea Nitrogen 27 mg/dL (8-24); CO2, Blood 35 mmol/L (21-32); Calcium, Blood 8.7 mg/dL (8.5-10.1); Chloride, Blood 102 mmol/L (98-108); Creatinine, Blood 0.55 mg/dL (0.40-1.00); Glucose, Blood 146 mg/dL (70-99); Phosphorus, Blood 3.2 mg/dL (2.5-4.9); Potassium, Blood 3.5 mmol/L (3.5-5.5); Sodium, Blood 137 mmol/L (136-145)
--- NOTE | 2025-06-06 07:19 | NUR ---
SHIFT SUMMARY PT HERE FOR SUN. SHE HAS BEEN AOX4, CALM AND COOPERATIVE. SHE HAS CALLED APPRORPRATELY OVERNIGHT. SHE HAS BEEN BEDBOUND, 2PA W/ TURNS. SHE HAS BEEN INCONTINENT OF BOWEL. SHE HAS SANCHEZ, PATENT AND DRAINING BY GRAVITY. PAIN HAS BEEN MINIMIZED TONIGHT. SHE HAS HAD NO COMPLAINTS AND NO ACUTE EVENTS OVERNIGHT.
[2025-06-06 07:38] VITALS: BP 110/71
[2025-06-06 14:41] VITALS: BP 107/68
[2025-06-06 19:31] VITALS: BP 101/60
--- NOTE | 2025-06-06 19:51 | NUR ---
SHIFT SUMMARY CLIENT IS AOX4. MEDICATION COMPLIANT. MEPILEX DRESSING OVER COCCYX REPLACED. SKIN TO BUTTOCKS AND GENITAL AREA REMAIN A DARK RED COLOR AND IS TENDER TO THE TOUCH. BED IS IN LOW POSITION AND CALL LIGHT IS WITHIN REACH
[2025-06-07 00:23] VITALS: BP 113/66
--- NOTE | 2025-06-07 04:05 | NUR ---
SHIFT SUMMARY PATIENT HAD NO ACUTE CHANGES. ALERT ORIENTED AND BEDREST. DENIES CHEST PAIN, SOB, AND N/V. VSS/AFEBRILE. PIVS INTACT. CBG 243. SANCHEZ PATENT AND DRAINING TO GRAVITY. CALL LIGHT IN REACH. BED IN LOWEST POSITION. WILL CONTINUE TO MONITOR UNTIL DAY SHIFT NURSE ASSUMES CARE.
[2025-06-07 04:58] LABS: ANTINUCLEAR AB (ANA),HEP-2,IGG <1:80 (<1:80); CYTOPLASM PATTERN Speckled; CYTOPLASMIC TITER 1:80
[2025-06-07 05:49] VITALS: BP 126/76
[2025-06-07 07:23] VITALS: BP 117/73
[2025-06-07 13:00] VITALS: BP 108/69
[2025-06-07] MEDS ORDERED: ZINC OXIDE/PETROLATUM, YELLOW 1 APPLIC/71 GM PASTE TOP PRN (15:30)
[2025-06-07 16:59] VITALS: BP 115/75
--- NOTE | 2025-06-07 20:00 | NUR ---
1600- THIS RN CALLED MD REED AND NOTIFED HER OF PT'S FOUR SORES PRESENT ON HER GENITALIA. PT HAS SORES ON BILATERAL LABIA MAJORA AND BILATERAL LABIA MINORA. SORES ARE DRAINING AND PAINFUL. WHITE DISCHARGE FROM VAGINA PRESENT. MD TO PLACE NEW ORDERS/UTILITY BAGGER CONSULT.
--- NOTE | 2025-06-07 20:05 | NUR ---
SUMMARY- AAOX3. ON RA. PT REFUSED TO GET OOB THIS SHIFT. PT DID AGREE TO BE TURNED Q 2 HRS. NO ACUTE EVENTS THIS SHIFT. REFER TO ABOVE NOTES FOR CALL TO MD REGARDING SAMANTHA EID.
[2025-06-07 20:33] VITALS: BP 101/60
[2025-06-07] MEDS ORDERED: Zinc Oxide Ointment 30 GM TOP SCH (21:00)
[2025-06-08 01:52] VITALS: BP 112/65
--- NOTE | 2025-06-08 04:56 | NUR ---
SHIFT SUMMARY: PT RESTING MOST OF THE NIGHT. Q2 REPOSITIONING DONE. PT MEDICATED PER EMAR. BLADDER TRAINING STARTED DURING DAY SHIFT BUT STOPED MID SHIFT. SEE BLADDER MANAGEMENT NOTE FOR FURTHER IMFORATION ON THIS. PT HAVING MULTIPLE LOOSE STOOLS THROUGH OUT SHIFT. DRESSING PLACED ON COCCYX FOR WOUND. CREAM ALSO APPLIED. CALL LIGHT IN REACH AND BED ALARM SET.
[2025-06-08 08:32] VITALS: BP 105/67
[2025-06-08 09:13] VITALS: BP 102/67
[2025-06-08] MEDS ORDERED: ACET325 PO (09:49)
[2025-06-08] MEDS ORDERED: JUVEN PACKET1 EA10 PO (09:50)
[2025-06-08] MEDS ORDERED: ENOX40I SC (09:50)
[2025-06-08] MEDS ORDERED: Diflucan100 MG PO (09:52)
[2025-06-08] MEDS ORDERED: HUMALOG JU100 UNIT/2 (09:53)
[2025-06-08] MEDS ORDERED: LOSA25 PO (09:53)
[2025-06-08] MEDS ORDERED: MIDO5 PO (09:54)
[2025-06-08] MEDS ORDERED: METO25 PO (09:54)
[2025-06-08] MEDS ORDERED: OXAYDO5 M1 PO (09:57)
[2025-06-08] MEDS ORDERED: VALA500 PO (09:59)
[2025-06-08] MEDS ORDERED: ENDIT56.7 GM TOP (10:00)
[2025-06-08] MEDS ORDERED: NYSTATIN15 GM TOP (10:10)
--- NOTE | 2025-06-08 12:59 | NUR ---
DC SUMMARY PT DC TO SNF THIS SHIFT. CALLED AND GAVE REPORT TO MONICO SANDERS AT [facility] IN [place] AROUND 1030. DC INSTRUCTION GONE OVER WITH PT AND PT DAUGHTER WHOM STATED UNDERSTANDING. PT DC IN W/C BY TRANSPORT SERVICES AT 1210.
[2025-06-08 13:54] LABS: Bacterial Vaginosis PCR Negative (NEGATIVE)
[2025-06-08 14:54] LABS: Candida Group, PCR DETECTED (NOT DETECT); Candida glabrata-krusei, PCR DETECTED (NOT DETECT)
[2025-06-10 08:35] LABS: PTHRP BY LC-MS/MS,PLASMA <2.0 pmol/L (0.0-3.4)
[2025-06-10 13:18] LABS: HSV SUBTYPE SOURCE LABIA
== END 2025-06-08 12:10 | DRG 871 ==
LOC: ER 11:07 → PCU 18:16 → ICUE 18:16 → MEDS 18:16 → ER 18:16 → ICUE 05-25 01:40 → MEDS 05-31 01:06
PROVIDERS: Emergency Medicine; Internal Medicine; Internal Medicine Nephrology; Nurse Practitioner Acute Care; Obstetrics & Gynecology; ADMIT Student in an Organized Health Care Education/Training Program
PROC: 3E03329 Introduction of Other Anti-infective into Peripheral Vein, Percutaneous Approach (ICD-10-PCS; principal; 2025-05-24)
PROC: 0T9B70Z Drainage of Bladder with Drainage Device, Via Natural or Artificial Opening (ICD-10-PCS; 2025-05-24)
PROC: 3E033XZ Introduction of Vasopressor into Peripheral Vein, Percutaneous Approach (ICD-10-PCS; 2025-05-26)
PROC: 30233J1 Transfusion of Nonautologous Serum Albumin into Peripheral Vein, Percutaneous Approach (ICD-10-PCS; 2025-05-27)
DX: A40.8 Other streptococcal sepsis (principal); R65.21 Severe sepsis with septic shock; N13.6 Pyonephrosis; N17.9 Acute kidney failure, unspecified; E87.1 Hypo-osmolality and hyponatremia; B37.49 Other urogenital candidiasis; R33.9 Retention of urine, unspecified; F32.A Depression, unspecified; L98.499 Non-pressure chronic ulcer of skin of other sites with unspecified severity; E86.0 Dehydration; R19.7 Diarrhea, unspecified; N32.0 Bladder-neck obstruction; N18.9 Chronic kidney disease, unspecified; E11.22 Type 2 diabetes mellitus with diabetic chronic kidney disease; D63.1 Anemia in chronic kidney disease; E83.39 Other disorders of phosphorus metabolism; E88.09 Other disorders of plasma-protein metabolism, not elsewhere classified; E87.6 Hypokalemia; E83.42 Hypomagnesemia; K59.00 Constipation, unspecified; E87.70 Fluid overload, unspecified; R60.0 Localized edema; Z79.4 Long term (current) use of insulin; Z79.84 Long term (current) use of oral hypoglycemic drugs
CPT/HCPCS: 36415; 51701; 51702; 74176; 74177; 80048; 80053; 80061; 80069; 81001; 81515; 82330; 82533; 82542; 82947; 83036; 83516; 83605; 83690; 83735; 83970; 84100; 84145; 84156; 84295; 84443; 84550; 85014; 85018; 85025; 85651; 86039; 86140; 87040; 87070; 87086; 87106; 87205; 87507; 87529; 93005; 93010; 93306; 96361; 96365; 96375; 97110; 97162; 97530; 99285-25; A9270; J0696; J1650; J1938; J2270; J2405; J2543; J3475; J3480; J7030; J7042; J7050; J7060; J7070; J7120; P9047; Q9967

== ENCOUNTER → 2025-07-09 | Outpatient (CLI) | payer MEDICARE ==
[~2025-07-09] MED LIST: ACET325 PO; Diflucan100 MG PO; ENDIT56.7 GM TOP; ENOX40I SC; GLUCOPHAGE1000 M1; HUMALOG JU100 UNIT/2; JARDIANCE25 MG PO; JUVEN PACKET1 EA10 PO; LISI10 PO; LOSA25 PO; METO25 PO; MIDO5 PO; NYSTATIN15 GM TOP; OXAYDO5 M1 PO; Prozac40 MG PO; VALA500 PO; [UNRECOGNIZED DRUG - OTHER] PO
[2025-07-09 12:55] LABS: Microalbumin, Urine Quant. 270.0 mg/L (0.000-20.000); Protein, Urine Quantitative 70.6 mg/dL (0.0-11.9); Sodium, Urine 41.0 mmol/L (20-110)
== END | disposition home or self-care (01) ==
LOC: LAB 09:30 → LAB SHORT 09:30 → LAB FUT 07-02 13:00
PROVIDERS: Internal Medicine Nephrology
DX: N18.2 Chronic kidney disease, stage 2 (mild) (principal); D63.1 Anemia in chronic kidney disease; N25.81 Secondary hyperparathyroidism of renal origin; E55.9 Vitamin D deficiency, unspecified; G60.9 Hereditary and idiopathic neuropathy, unspecified; R76.9 Abnormal immunological finding in serum, unspecified; R94.5 Abnormal results of liver function studies; R94.6 Abnormal results of thyroid function studies
CPT/HCPCS: 82043; 82570; 84156; 84300